=== PATIENT | male | born 1970 | race Caucasian/White ===

== ENCOUNTER 2023-05-19 08:09 | Emergency (ER) | payer BC, SELFPAY ==
[2023-05-19 08:27] VITALS: BP 143/88; PULSE 91; RESP 18; TEMP 36.2; O2SAT 100; BMI 30.7
[2023-05-19 11:46] VITALS: BP 142/97; PULSE 73; RESP 18; TEMP 36.7; O2SAT 99
[2023-05-19 17:18] VITALS: BP 159/103; PULSE 87; RESP 18; TEMP 36.6; O2SAT 99
--- NOTE | 2023-05-19 22:50 | ED.CHESTPAIN ---
HPI - Chest Pain General Chief Complaint: Chest Pain Stated Complaint: Chest pain 3 days, dizziness Time Seen by Provider: 05/19/23 22:26 Source: patient Mode of arrival: ambulatory Limitations: no limitations History of Present Illness HPI narrative: Patient comes to the emergency room complaining of chest pain on the left side continuously for 4 days. Patient states that for 12 years he has had multiple episodes of dizziness and near syncope. But never passed out. Patient states that he has not been seen by a primary care physician in 10+ years. Patient states he had a stress test approximately 12 years ago. Patient has been told in the past that his blood pressure was high, but patient decided to manage it at home by losing weight, not smoking, and not drinking alcohol. Patient states that he checks his blood pressure at home and is usually in the 120s systolic. Related Data Allergies Allergy/AdvReac Type Severity Reaction Status Date / Time No Known Allergies Allergy Verified 05/19/23 08:26 Review of Systems Review of Systems: Constitutional : No Weight loss, No Fever, No Chills, No Night Sweats, No Fatigue, No Malaise ENT/Mouth : No Hearing loss, No Ear Pain, No Nasal Congestion, No Sinus Pain, No Hoarseness, No sore throat, No Rhinorrhea, No Swallowing Difficulty Eyes: No Eye Pain, No Swelling, No Redness, No Foreign Body, No Discharge, No Vision Changes Cardiovascular : Complaining of 4 days of chest pain, no shortness of breath, no orthopnea, no lower extremity edema, no syncopal episodes Respiratory : No Cough, No Sputum, No Wheezing, No Smoke Exposure, No Dyspnea Gastrointestinal : No Nausea, No Vomiting, No Diarrhea, No Constipation, No abdominal Pain, No Hematochezia, No Melena Genitourinary : no irregular bleeding, No Dysuria, No Urinary Frequency, No Hematuria, No Urinary Incontinence, No Urgency, No Flank Pain, No Urinary Flow Changes, No Hesitancy Musculoskeletal : No joint pain, No Myalgias, No Joint Swelling Skin : No Skin Lesions, No rash Neuro : No Weakness, No Numbness, No Paresthesias, No Loss of Consciousness, No Dizziness, No Headache Psych : No Anxiety/Panic, No Depression, No SI/HI/AH/VH, No Social Issues, Heme/Lymph: No Bruising, No Bleeding,No Lymphadenopathy Endocrine : No Polyuria, No Polydipsia, No Temperature Intolerance PMFSH Social History Social History Advance Directives: No Advance Directives Information Provided: Yes Physical Exam Vital Signs: Vital Signs: Last Vital Signs Temp 97.8 F 05/19/23 17:18 Pulse 87 05/19/23 17:18 Resp 18 05/19/23 17:18 BP 159/103 H 05/19/23 17:18 Pulse Ox 99 05/19/23 17:18 O2 Del Method Room Air 05/19/23 17:18 BMI result Body Mass Index 30.7 Medical Decision Making Medical Decision Making [facility] Narrative: -my interpretation of labs: Hematology and chemistry are unremarkable. Troponin x2 negative -my interpretation of EKG: Normal sinus rhythm, heart rate 86, no ST segment depression or elevation, no T-wave inversion, QTC 461 -patient's physical exam was unremarkable. -my interpretation of chest x-ray: No infiltrate, no rib fracture -I discussed with the patient to check his blood pressure at home, compare the blood pressure monitor with a pharmacy free monitor to make sure it is well calibrated, check blood pressure at any pharmacy -discussed with the patient that if he has elevated blood pressure, he needs to see his primary care physician and start blood pressure medications. At this time, patient states that his blood pressure is high only here in the ED, otherwise at home blood pressure is in the 120s. At this time, we will not start blood pressure medications. -interpretation of EKG 2.: Normal sinus rhythm, heart rate 71, no ST segment elevation, nonspecific T-wave inversion in lead 3, QTC 436 -patient has been symptomatic for over 4 days, troponin negative, EKG unremarkable, unlikely that the chest pain is from cardiac etiology. -patient had a stress test approximately 10-12 years ago, discussed with the patient to follow up with his primary care physician, if patient continues having chest pains, patient may be a good candidate for stress test. Differential Diagnosis Differential Diagnoses: The differential diagnosis associated with the presentation includes (ACS, costochondritis, pleurisy) Lab Data [facility] Lab Attestation statement: I reviewed the patient's lab results. 05/19/23 11:08 05/19/23 11:08 Labs: Lab Results 05/19/23 05/19/23 Range/Units 11:08 15:25 WBC 7.6 (4.8-10.8) X10*3/uL RBC 5.62 (4.60-5.80) X10*6/uL Hgb 16.4 (14.0-18.0) g/dl Hct 47.5 (42.0-52.0) % MCV 84.5 (80.0-98.0) fL MCH 29.2 (27.0-33.0) pg MCHC 34.5 (31.0-36.0) g/dl RDW 12.6 (11.0-16.0) % Plt Count 253 (160-400) X10*3/uL MPV 9.5 (9.4-12.4) fL Immature Gran % (Auto) 0.3 (0.0-0.4) % Neut % (Auto) 57.3 (45-73) % Lymph % (Auto) 34.5 (20-40) % Hutchinson % (Auto) 6.2 (2-11) % Eos % (Auto) 1.3 (0-4) % Baso % (Auto) 0.4 (0-2) % Lymph # (Auto) 2.6 (1.2-4.9) X10*3/uL Hutchinson # (Auto) 0.5 (0.1-1.2) X10*3/uL Eos # (Auto) 0.1 (0.0-0.4) X10*3/uL Baso # (Auto) 0.0 (0.0-0.2) X10*3/uL Abs Immat Gran (auto) 0.02 (0.00-0.03) X10*3/uL Absolute Neuts (auto) 4.4 (2.0-8.3) x10*3/uL Absolute Nucleated RBC 0.000 (0.0-0.012) X10*3/uL Nucleated RBC % (auto) 0.0 (0.0-0.2) /100WBC Sodium 141 (135-145) mmol/L Potassium 3.7 (3.3-5.1) mmol/L Chloride 104 (96-108) mmol/L Carbon Dioxide 30 H (22-29) mmol/L Anion Gap 11 L (12-20) BUN 11 (9-16) mg/dL Creatinine 0.81 (0.5-1.4) mg/dL Estim Creat Clear Calc 111.0 Estimated GFR > 60 Random Glucose 93 (60-115) mg/dL Calcium 9.5 (8.4-10.2) mg/dL Total Bilirubin 0.8 (0.0-1.0) mg/dL AST 26 (5-37) U/L ALT 28 (0-40) U/L Alkaline Phosphatase 45 (39-117) U/L Troponin I High Sens < 2.7 < 2.7 (<3.5-35.0) ng/L Total Protein 7.6 (6.5-8.0) g/dL Albumin 4.6 (3.5-5.0) g/dL COVID-19 (DANDY) Negative (Negative) COVID-19 Clin Com See Note Influenza Type A (GRISEL) Negative (Negative) Influenza Type B (GRISEL) Negative (Negative) Influenza A & B Note See Note Independent Interpretation I performed an independent interpretation of an: Plain X-Ray Radiology Impression Discussion of test interpretation with radiology: I have reviewed the radiologist's reading. Radiologist Impression: FINDINGS: No significant abnormality is noted involving the heart, lungs, mediastinum, bony thorax or soft tissues. XR/XR chest 1V IMPRESSION: Unremarkable examination. Discharge Plan Discharge Clinical Impression: Atypical chest pain Patient Disposition: Home, Self-Care Instructions: Chest Pain (ED) Additional Instructions: Please keep a log of her blood pressure. Please make sure that you take your blood pressure in 2 different settings such as home and any pharmacy or [facility]. If your blood pressure is above 140 (top number), please consider scheduling an appointment with her primary care physician as you may need to start blood pressure medications. Also, please consider scheduling an appointment with her primary care physician, since he has been been seen by a primary care doctor in over 10 years. If you continue having chest pain, you may need a stress test. Please follow-up with your primary care physician tomorrow. If you have any worsening or new symptoms, please return to the emergency room or call 911
--- NOTE | 2023-05-19 23:51 | PC.NURSE ---
pt refused all vitals signs and interventions by this RN
== END 2023-05-19 23:52 | disposition home or self-care (01) ==
PROVIDERS: Emergency Provider Emergency Medicine; PCP Internal Medicine
DX: R07.89 Other chest pain (principal); Z11.52 Encounter for screening for COVID-19
CPT/HCPCS: 36415; 71045; 80053; 84484; 85025; 87502; 87635; 93005; 99283; 99284

== ENCOUNTER → 2023-05-19 08:14 | Outpatient (BNV) | payer BC, SELFPAY | PROVIDERS: PCP Internal Medicine; Visit Provider Internal Medicine Cardiovascular Disease | DX: R07.9 Chest pain, unspecified (principal) | CPT/HCPCS: 93010 ==